=== PATIENT | female | born 1945 | race Caucasian/White ===

== ENCOUNTER 2017-12-19 13:37 | Outpatient (CLI) | payer MEDICARE, BC | END 2017-12-19 13:38 | disposition home or self-care (01) | LOC: BICRAD 13:37 | PROVIDERS: ATTEND Otolaryngology Plastic Surgery within the Head & Neck | DX: J45.901 Unspecified asthma with (acute) exacerbation (principal); R05 Cough | CPT/HCPCS: 71046 ==

== ENCOUNTER 2018-01-26 14:27 | Outpatient (CLI) | payer MEDICARE, BC ==
--- NOTE | 2018-01-26 16:07 | ULT ---
THYROID ULTRASOUND: History: Hypothyroidism. Comparison: None. FINDINGS: The thyroid echotexture is mildly coarsened. There is normal vascularity. Right lobe measures 5.7 x 1 .9 x 2.5 cm. Left lobe measures 4.1 x 2.1 x 1.7 cm. IMPRESSION: 1. Mild thyroidmegaly. No abnormal nodules. 2. Very mild increased vascularity can be seen with Grave's disease. POS: [facility]
== END 2018-01-26 14:28 | disposition home or self-care (01) ==
LOC: ULT 14:27
PROVIDERS: ATTEND Otolaryngology Plastic Surgery within the Head & Neck
DX: D49.7 Neoplasm of unspecified behavior of endocrine glands and other parts of nervous system (principal); E01.0 Iodine-deficiency related diffuse (endemic) goiter; E05.00 Thyrotoxicosis with diffuse goiter without thyrotoxic crisis or storm
CPT/HCPCS: 76536

== ENCOUNTER 2018-07-24 11:17 | Outpatient (CLI) | payer MEDICARE, BC ==
[2018-07-24 12:43] LABS: #Basophils 0.1 thou/uL (0.0-0.2); #Eosinphils 0.1 thou/uL (0.0-0.7); #Lymphocytes 2.3 thou/uL (1.20-3.40); #Monocytes 0.6 thou/uL (0.11-0.59); #Neutrophils 2.9 thou/uL (1.40-6.50); %Eosinophils 1.5 % (0.0-10.0); %Monocytes 10.5 % (0.0-10.0); Hemoglobin 14.3 g/dL (12.0-16.0); Mean Corpuscular HGB CONC 34.1 g/dL (32.0-36.0); Mean Corpuscular Hemoglobin 31.7 pg (27.0-31.0); Mean Corpuscular Volume 92.9 fL (78.0-98.0); Mean Platelet Volume 8.1 fL (7.4-10.4); Platelet Count 236 thou/uL (130-400); RBC Distribution Width 11.9 % (11.5-14.5); Red Blood Cell (RBC) Count 4.51 mill/uL (4.20-5.40)
[2018-07-24 13:02] LABS: Anion Gap 15 mmol/L (10-20); BUN (Urea Nitrogen) 10 mg/dL (9.8-20.1); Calc. Creatinine Clearance 0 mL/min (70-130); Calcium 9.3 mg/dL (7.8-10.44); Carbon Dioxide 20 mmol/L (23-31); Chloride 107 mmol/L (98-107); Estimated GFR-MDRD 70; Glucose 71 mg/dL (83-110); Potassium 4.2 mmol/L (3.5-5.1); Sodium 138 mmol/L (136-145)
--- NOTE | 2018-07-24 13:42 | RAD ---
PA AND LATERAL CHEST RADIOGRAPH: Date: 07-24-18 History: Pre-operative evaluation. Comparison: None available. FINDINGS: There is symmetric biapical pleural and parenchymal scarring. The lungs otherwise appear clear and/or expanded. Cardiac silhouette and pulmonary vasculature are within normal limits. There is osteopenia . IMPRESSION: 1. Mild chronic lung changes with pleural and parenchymal scarring at each lung apex. 2. No acute cardiopulmonary process. POS: [facility]
--- NOTE | 2018-07-24 16:05 | EKG ---
Test Reason : Blood Pressure : / mmHG Vent. Rate : 057 BPM Atrial Rate : 057 BPM P-R Int : 176 ms QRS Dur : 080 ms QT Int : 418 ms P-R-T Axes : 068 066 061 degrees QTc Int : 406 ms Sinus bradycardia Otherwise normal ECG Confirmed by AHMET ROSAS ([id number]) on 07/24/2018 4:04:32 PM Referred By: MYLES Confirmed By:AHMET ROSAS
== END 2018-07-24 11:18 | disposition home or self-care (01) ==
LOC: LABBT 11:17
PROVIDERS: ATTEND Specialist
DX: Z01.818 Encounter for other preprocedural examination (principal); C50.511 Malignant neoplasm of lower-outer quadrant of right female breast
CPT/HCPCS: 71046; 80048; 85025; 93005; 93010

== ENCOUNTER 2018-08-01 07:34 | Inpatient (IN) | payer MEDICARE, BC ==
[2018-08-01] MEDS ORDERED: Ketorolac Tromethamine 30 MG/ML VIAL ONE (09:01)
[2018-08-01] MEDS ORDERED: CEFAZOLIN/Water 2 GM/20 ML SYRINGE ONE (09:01)
--- NOTE | 2018-08-01 09:47 | NM ---
RIGHT BREAST LYMPHOSCINTIGRAPHY: INDICATION: Right breast cancer. RADIOPHARMACEUTICAL: 0.418 mCi Technetium 99m filtered SC subcutaneously. TECHNIQUE: Four separate aliquots were administered for a total of 0.418 mCi of Technetium 99m filtered SC withi n the 4 separate quadrants of the right nipple areolar complex. The site was massaged. The patient underwent planar imaging until initial lymph nodes within the anterior aspect of the right axilla wer e localized. This was marked on the patient's skin and the patient was then transferred to the preop erative holding area for the patient's right breast procedure. IMPRESSION: Successful right breast lymphoscintigraphy. POS: [facility]
[2018-08-01] MEDS ORDERED: Bupivacaine/Epinephrine 0.25% 30 ML VIAL ONE (09:56)
[2018-08-01] MEDS ORDERED: Fentanyl 250 MCG/5 ML VIAL ONE (10:18)
[2018-08-01] MEDS ORDERED: Isosulfan Blue 50 MG/5 ML VIAL ONE (11:03)
[2018-08-01] MEDS ORDERED: Dexamethasone 20 MG/5 ML VIAL ONE (13:45)
[2018-08-01] MEDS ORDERED: Ondansetron HCl/PF 4 MG/2 ML Vial ONE (13:45)
[2018-08-01] MEDS ORDERED: Glycopyrrolate 0.2 MG/ML 5 ML SYRINGE ONE (13:45)
[2018-08-01] MEDS ORDERED: ePHEDrine/0.9% NaCl/PF SYRINGE 50 mg/10 ml ONE (13:45)
[2018-08-01] MEDS ORDERED: PROPOFOL 200 MG/20 ML VIAL ONE (13:45)
[2018-08-01] MEDS ORDERED: PHENYLEPHRINE-NS 100 MCG/ML 10 ML SYRINGE ONE (13:45)
[2018-08-01] MEDS ORDERED: Fentanyl 100 MCG/2 ML VIAL ONE ×2 (14:24→15:18)
[2018-08-01] MEDS ORDERED: HYDROcodone/Acetaminophen 7.5/325 mg Tablet PO PRN ×2 (15:56)
[2018-08-01] MEDS ORDERED: Morphine 4 MG/ML VIAL SLOW IVP PRN (15:56)
[2018-08-01] MEDS ORDERED: Dextrose 5% in Water 1,000 ML IV PRN (15:56)
[2018-08-01] MEDS ORDERED: Acetaminophen 325 MG TAB PO PRN (15:56)
[2018-08-01] MEDS ORDERED: Ondansetron HCl/PF 4 MG/2 ML Vial IVP PRN (15:56)
[2018-08-01] MEDS ORDERED: Dextrose 50% Abboject 50 ML SYRINGE SLOW IVP PRN (15:56)
[2018-08-01] MEDS ORDERED: hydrALAZINE 20 MG/ML VIAL SLOW IVP PRN (15:56)
[2018-08-01] MEDS ORDERED: Promethazine HCl 25 MG/ML VIAL IM PRN (15:56)
[2018-08-01] MEDS: D5 1/2 NS w/20 mEq KCL 1,000 ML IV SCH (16:34)
[2018-08-01 16:58] VITALS: BMI 23.7
[2018-08-01] MEDS: Famotidine 20 MG TAB PO SCH (21:53)
[2018-08-02 04:59] LABS: #Basophils 0.1 thou/uL (0.0-0.2); #Lymphocytes 2.6 thou/uL (1.20-3.40); #Monocytes 1.2 thou/uL (0.11-0.59); #Neutrophils 9.4 thou/uL (1.40-6.50); %Basophils 0.4 % (0.0-1.0); %Eosinophils 0.1 % (0.0-10.0); %Lymphocytes 19.5 % (21.0-51.0); %Monocytes 8.7 % (0.0-10.0); %Neutrophils 71.2 % (42.0-75.0); Hemoglobin 10.8 g/dL (12.0-16.0); Mean Corpuscular HGB CONC 34.4 g/dL (32.0-36.0); Mean Corpuscular Hemoglobin 32.4 pg (27.0-31.0); Mean Corpuscular Volume 94.3 fL (78.0-98.0); Mean Platelet Volume 8.5 fL (7.4-10.4); Platelet Count 231 thou/uL (130-400); Red Blood Cell (RBC) Count 3.33 mill/uL (4.20-5.40); White Blood Cell (WBC) Count 13.2 thou/uL (4.8-10.8)
[2018-08-02] MEDS: D5 1/2 NS w/20 mEq KCL 1,000 ML IV SCH (07:19)
[2018-08-02 08:37] VITALS: BP 144/76; TEMP 98.3
[2018-08-02] MEDS: Famotidine 20 MG TAB PO SCH (10:06)
--- NOTE | 2018-08-03 14:37 | OP ---
DATE OF PROCEDURE: 08/01/2018 PREOPERATIVE DIAGNOSIS: Right breast cancer, BRCA positive (genetic susceptibility to breast cancer) . POSTOPERATIVE DIAGNOSIS: Right breast cancer, BRCA positive (genetic susceptibility to breast cancer ). PROCEDURE PREFORMED: Bilateral nipple-sparing mastectomy, right axillary sentinel lymph node biopsy. SURGEON: Bayron Khan M.D. ANESTHESIA: General endotracheal. INDICATIONS: The patient is a 73-year-old white female. She had a recent finding on mammogram that prompted a stereotactic biopsy of the right breast. This revealed a small focus of invasive ductal c arcinoma. When her family history was examined, genetic testing was ordered, which proved to be posi tive. I counseled her extensively regarding options in light of her diagnosis and her age. She has elected to proceed with bilateral nipple-sparing mastectomy with planned reconstruction. PROCEDURE IN DETAIL: Informed consent was obtained. Right breast lymphoscintigraphy was performed, which revealed sentinel lymph nodes within the right axilla. She was taken to the operating room whe re general endotracheal anesthesia was obtained with the patient in the supine position. Bilateral b reasts and axillae were prepped with ChloraPrep and draped in sterile fashion. Attention was turned first to the right axilla. 2.5 mL of Lymphazurin was infiltrated in the right p eriareolar subdermal tissue and massaged for 5 minutes. Local anesthetic was infiltrated and a trans verse right infra-axillary incision was created and dissection was carried through skin and subcutane ous tissue. The Neoprobe was utilized to identify areas of maximum radio intensity within the axilla . I was able to identify 2 separate lymph nodes with significant radioactivity. Each of these was d issected circumferentially and all investing lymphatics divided between clamps and 3-0 silk ties. Th e lymph nodes were passed off the field and submitted for touch prep. Pathologic evaluation was nega tive of both lymph nodes. There was no area of any further increased radioactive uptake within the a xilla nor was there any evidence of any further blue dye. The wound was irrigated and meticulous hem ostasis obtained. The wound was closed in layers with 3-0 and 4-0 Monocryl. Attention was turned next to the left breast. A curvilinear incision was created at the inferior asp ect of the left breast in the inframammary crease. The medial aspect of this incision was 8 cm in th e midline. A nipple-sparing mastectomy was performed in the usual fashion by elevating the breast ti ssue off the underlying pectoral fascia and then carefully dissecting the breast tissue from the skin flap attempting to maintain appropriate subcutaneous fat on the skin flap. Great care was taken in dissecting the nipple areolar complex as well. The mastectomy specimen was removed intact and tagged for orientation and submitted to pathology. Care was taken to avoid axillary dissection as well. The wound was thoroughly irrigated and meticulous hemostasis was obtained. A #19 round fluted drain was brought out laterally and inferiorly and secured with 3-0 nylon suture. The incision was closed with 3-0 and 4-0 Monocryl suture. Attention was turned to the right breast. A mirror image incision and operation was performed involv ing the right breast as on the left. The operation did not encounter the area of the prior sentinel lymph node biopsy within the axilla. The area of the sterotactic biopsy was visualized, but was with out evidence of apparent malignancy at the site that was seen. Again, hemostasis was obtained, drain was placed, the wound was closed. Dermabond was placed on all three incision sites. Fluffed gauze was placed over both mastectomy areas and an Isoband dressing wa s applied. Sterile occlusive dressings were applied over the drain's exit sites as well. There were no complications. Blood loss was minimal. The patient tolerated the procedure well and was taken t o recovery room in stable condition.
== END 2018-08-02 10:57 | disposition home or self-care (01) | DRG 581 ==
LOC: SDC 07:34 → T4-B 15:43
PROVIDERS: ADMIT Specialist; ATTEND Specialist
PROC: 0HTV0ZZ Resection of Bilateral Breast, Open Approach (ICD-10-PCS; principal; 2018-08-01)
PROC: 07B50ZX Excision of Right Axillary Lymphatic, Open Approach, Diagnostic (ICD-10-PCS; 2018-08-01)
DX: C50.511 Malignant neoplasm of lower-outer quadrant of right female breast (principal)
CPT/HCPCS: 36415; 78195; 85025; 88305; 88307; 88309; 88331; 88332; 88334; A9541; J0131; J1100; J1885; J2405; J2704; J3010; Q9968

== ENCOUNTER 2018-08-25 10:25 | Day surgery (SDC) | payer MEDICARE, BC ==
[2018-08-24 09:59] VITALS: BMI 22.6
[2018-08-25] MEDS ORDERED: Heparin 5,000 UNITS/ML VIAL ONE (10:57)
[2018-08-25] MEDS ORDERED: CEFAZOLIN/Water 2 GM/20 ML SYRINGE ONE (10:57)
[2018-08-25] MEDS ORDERED: Scopolamine 1.5 mg/72 hour Patch ONE (11:19)
[2018-08-25] MEDS ORDERED: Fentanyl 100 MCG/2 ML VIAL ONE ×2 (11:40→17:14)
[2018-08-25] MEDS ORDERED: Midazolam HCl 2 mg/2 ml Vial ONE (11:40)
[2018-08-25] MEDS ORDERED: HYDROcodone/Acetaminophen 10/325 mg Tablet PO PRN ×2 (12:45)
[2018-08-25] MEDS ORDERED: Zolpidem Tartrate 5 MG TAB PO PRN (12:45)
[2018-08-25] MEDS ORDERED: Ropivacaine 0.2% 550 ML 550 ML NERVE BLCK SCH ×2 (12:45→13:00)
[2018-08-25] MEDS ORDERED: traMADol HCl 50 MG TAB PO PRN ×2 (12:45)
[2018-08-25] MEDS ORDERED: Promethazine HCl 25 MG/ML VIAL IM PRN (12:45)
[2018-08-25] MEDS ORDERED: Ondansetron HCl/PF 4 MG/2 ML Vial IVP PRN (12:45)
[2018-08-25] MEDS ORDERED: Ketorolac Tromethamine 30 MG/ML VIAL IVP PRN (12:45)
[2018-08-25] MEDS ORDERED: Fentanyl 100 MCG/2 ML VIAL IV PRN (12:46)
[2018-08-25] MEDS ORDERED: Bupivacaine/Epinephrine 0.25% 30 ML VIAL ONE ×2 (13:00→13:08)
[2018-08-25] MEDS ORDERED: Gentamicin 80 MG/2 ML VIAL ONE ×3 (13:00→15:37)
[2018-08-25] MEDS ORDERED: Fentanyl 250 MCG/5 ML VIAL ONE (13:03)
[2018-08-25] MEDS ORDERED: Sodium Chloride 0.9% 10 ML ONE ×2 (13:06→13:54)
[2018-08-25] MEDS ORDERED: Ropivacaine 0.2% HCl/PF 20 ML ONE (14:05)
[2018-08-25] MEDS ORDERED: Ropivacaine 0.5% HCl/PF (150 MG/30 ML VIAL) ONE (14:50)
[2018-08-25] MEDS ORDERED: Ropivacaine 0.2% HCl/PF (40 MG/20 ML VIAL) ONE (14:50)
[2018-08-25] MEDS ORDERED: PHENYLEPHRINE-NS 100 MCG/ML 10 ML SYRINGE ONE (15:56)
[2018-08-25] MEDS ORDERED: Ondansetron HCl/PF 4 MG/2 ML Vial ONE (15:56)
[2018-08-25] MEDS ORDERED: PROPOFOL 200 MG/20 ML VIAL ONE (15:56)
[2018-08-25] MEDS ORDERED: Dexamethasone 20 MG/5 ML VIAL ONE (15:56)
[2018-08-25] MEDS ORDERED: Lidocaine 1% PF 5 ML VIAL ONE (15:56)
--- NOTE | 2018-08-25 22:40 | OP ---
DATE OF PROCEDURE: 08/25/2018 PREOPERATIVE DIAGNOSES: 1. Breast cancer. 2. Status post bilateral mastectomy. PROCEDURES: 1. Bilateral placement of tissue expanders for breast reconstruction (37600.50) . 2. Bilateral placement of Strattice dermal matrix for breast reconstruction ( 13405.50)(each side 16 x 20 cm). DESCRIPTION OF PROCEDURE: Following induction of adequate anesthesia, the patient was prepped and draped in the usual sterile fashion in the supine position. The existing inframammary crease scar was incised. Dissection was carried sharply down through the subcutaneous tissue to the underlying pectoralis fascia. Subsequently, adequate prepectoral pocket was made. The pocket was copiously irrigated and inspected for meticulous hemostasis prior to placement of the tissue skill labor with the Strattice secured to the tabs laterally and inferiorly to keep it draped over the anterior surface of the skill labor. The tissue skill labor was then secured at the inframammary crease with 3-0 PDS suture through the suture tabs as well as with the AlloDerm. The inframammary crease incision was closed with 3-0 PDS suture followed by 3-0 Monocryl suture. Additionally, prior to closure, dissolvable antibiotic beads containing vancomycin and gentamicin were placed in the pocket. The patient tolerated the procedure well. A similar procedure was done on each side. All iverson were copiously irrigated with triple antibiotic solution as well as dilute Betadine solution prior to closure and placement of the implants. Also, a skin barrier was used. [facility]ITAL[facility]ol[facility]
== END 2018-08-25 19:12 | disposition home or self-care (01) ==
LOC: SDC 10:25
PROVIDERS: ATTEND Plastic Surgery
PROC: 0HHV0NZ Insertion of Tissue Expander into Bilateral Breast, Open Approach (ICD-10-PCS; principal; 2018-08-25)
PROC: 0HUV0JZ Supplement Bilateral Breast with Synthetic Substitute, Open Approach (ICD-10-PCS; 2018-08-25)
DX: Z42.1 Encounter for breast reconstruction following mastectomy (principal); E78.00 Pure hypercholesterolemia, unspecified; Z85.3 Personal history of malignant neoplasm of breast; Z87.891 Personal history of nicotine dependence; Z79.899 Other long term (current) drug therapy; Z90.13 Acquired absence of bilateral breasts and nipples
CPT/HCPCS: 15777; 19357; 96374 ×2; A4306; C1713; A4216; J1100; J1580; J1644; J2001; J2250; J2405; J2704; J2795; J3010; J3370; J3490

== ENCOUNTER 2018-09-06 10:31 | Outpatient (CLI) | payer MEDICARE, BC ==
[2018-09-06 12:03] LABS: Anion Gap 12 mmol/L (10-20); BUN (Urea Nitrogen) 8 mg/dL (9.8-20.1); Calc. Creatinine Clearance 0 mL/min (70-130); Calcium 9.3 mg/dL (7.8-10.44); Carbon Dioxide 21 mmol/L (23-31); Chloride 103 mmol/L (98-107); Estimated GFR-MDRD 72; Glucose 82 mg/dL (83-110); Potassium 4.3 mmol/L (3.5-5.1); Sodium 132 mmol/L (136-145)
[2018-09-06 12:18] LABS: #Eosinphils 0.4 thou/uL (0.0-0.7); #Lymphocytes 2.1 thou/uL (1.20-3.40); #Monocytes 0.9 thou/uL (0.11-0.59); #Neutrophils 3.5 thou/uL (1.40-6.50); %Basophils 0.7 % (0.0-1.0); %Eosinophils 5.1 % (0.0-10.0); %Lymphocytes 30.7 % (21.0-51.0); %Monocytes 12.4 % (0.0-10.0); %Neutrophils 51.2 % (42.0-75.0); Hemoglobin 12.8 g/dL (12.0-16.0); Mean Corpuscular HGB CONC 32.8 g/dL (32.0-36.0); Mean Corpuscular Hemoglobin 30.8 pg (27.0-31.0); Mean Corpuscular Volume 93.9 fL (78.0-98.0); Platelet Count 343 thou/uL (130-400); RBC Distribution Width 11.7 % (11.5-14.5); Red Blood Cell (RBC) Count 4.17 mill/uL (4.20-5.40); White Blood Cell (WBC) Count 6.8 thou/uL (4.8-10.8)
== END 2018-09-06 10:32 | disposition home or self-care (01) ==
LOC: LABBT 10:31
PROVIDERS: ATTEND Specialist
DX: Z01.818 Encounter for other preprocedural examination (principal); C50.911 Malignant neoplasm of unspecified site of right female breast
CPT/HCPCS: 80048; 85025; 93005; 93010

== ENCOUNTER 2018-09-07 09:11 | Day surgery (SDC) | payer MEDICARE, BC ==
[2018-09-06 10:53] VITALS: BMI 22.5
[2018-09-07] MEDS ORDERED: Ketorolac Tromethamine 30 MG/ML VIAL ONE (10:10)
[2018-09-07] MEDS ORDERED: CEFAZOLIN/Water 2 GM/20 ML SYRINGE ONE (10:10)
[2018-09-07] MEDS ORDERED: Lidocaine 2% PF Inj 2 ML VIAL ONE (10:35)
[2018-09-07] MEDS ORDERED: Bupivacaine/Epinephrine 0.25% 30 ML VIAL ONE (10:35)
[2018-09-07] MEDS ORDERED: Fentanyl 100 MCG/2 ML VIAL ONE (11:39)
[2018-09-07] MEDS ORDERED: Propofol 500 MG/50 ML VIAL ONE (11:39)
--- NOTE | 2018-09-07 13:51 | RAD ---
CHEST ONE VIEW: FINDINGS: C-arm view of the chest was obtained and shows a left sided Mediport catheter present. The catheter t ip overlies the superior vena cava. IMPRESSION: Mediport catheter replacement. POS: [facility]
--- NOTE | 2018-09-07 14:05 | RAD ---
PORTABLE CHEST: HISTORY: Status post MediPort catheter placement. FINDINGS: Heart size within normal limits. The A left-sided MediPort catheter is present. Catheter tip overli es the superior vena cava. No signs of pneumothorax. Bilateral breast augmentation is noted. IMPRESSION: Left-sided MediPort catheter. Catheter tip overlies the superior vena cava. No signs of pneumothora x. POS: [facility]
--- NOTE | 2018-09-08 08:20 | OP ---
DATE OF PROCEDURE: 09/07/2018 PREOPERATIVE DIAGNOSIS: Right breast cancer. POSTOPERATIVE DIAGNOSIS: Right breast cancer. OPERATION PERFORMED: Left subclavian low profile power compatible MediPort placement. SURGEON: Bayron Khan M.D. ANESTHESIA: Total intravenous anesthesia with local using 0.25% Marcaine with epinephrine. INDICATIONS: The patient is a 73-year-old white female. She was diagnosed with right breast cancer and was found to be BRCA positive. She subsequently underwent bilateral nipple-sparing mastectomy an d has undergone the initial stage of reconstruction with placement of tissue commission associate. Her Oncotype results suggested a high risk of recurrence, and therefore, chemotherapy has been recommended. She p resents at this time for MediPort placement for this purpose. DESCRIPTION OF OPERATION: Informed consent was obtained. The patient was taken to the operating sarbjit m where total intravenous anesthesia was obtained with the patient in supine position. Right pericla vicular area was prepped with ChloraPrep and draped in sterile fashion. Local anesthetic was infiltr ated and a large gauge needle was passed under the clavicle in the subclavian vein. Guidewire was pa ssed through the needle and fluoroscopically confirmed to enter the superior vena cava. Additional l ocal anesthetic was infiltrated and transverse incision was created based on needle insertion site. A subcutaneous pocket was dissected inferiorly. Introducer dilator was passed over the guidewire und er fluoroscopic guidance. The guidewire and dilator were removed, and the catheter was passed throug h the introducer. The tip of the catheter was positioned at the atriocaval junction and the catheter was trimmed to the appropriate length and secured to the locking hub of the MediPort. The port was then placed in the subcutaneous pocket where it was secured to the pectoral fascia with 2 interrupted sutures of 3-0 Prolene. The incision was then closed in layers with 3-0 and 4-0 Monocryl. Addition al local anesthetic was infiltrated. The port was cannulated with a Calhoun needle and it aspirated bl ood freely and was flushed with heparinized saline. Dermabond was placed externally on the skin inci natasha. There were no complications. Blood loss was negligible. The patient tolerated the procedure well and was taken to recovery room in stable condition. FINDINGS: The port placed was a low profile port. It was placed uneventfully into the left subclavi an vein. Her anatomy was typical. There were essentially no blood loss and no complications. She t olerated the procedure well and was taken to recovery room in stable condition.
== END 2018-09-07 13:30 | disposition home or self-care (01) ==
LOC: SDC 09:11
PROVIDERS: ATTEND Specialist
PROC: 0JH63WZ Insertion of Totally Implantable Vascular Access Device into Chest Subcutaneous Tissue and Fascia, Percutaneous Approach (ICD-10-PCS; principal; 2018-09-07)
DX: C50.911 Malignant neoplasm of unspecified site of right female breast (principal); Z79.811 Long term (current) use of aromatase inhibitors; Z79.899 Other long term (current) drug therapy; Z90.13 Acquired absence of bilateral breasts and nipples
CPT/HCPCS: 36561; 71045; C1788; J0131; J1642; J1885; J2704; J3010

== ENCOUNTER 2019-01-31 15:17 | Outpatient (CLI) | payer MEDICARE, BC ==
--- NOTE | 2019-01-31 16:52 | RAD ---
PA AND LATERAL CHEST: HISTORY: Cough. COMPARISON: 07/24/2018 FINDINGS: There has been placement of a left-sided Port-A-Cath with the tip in the projection of the SVC. Bila teral breast implants are present. The heart size is normal. The lungs are well expanded without lo bar consolidation, pneumothoraces, or pleural effusions. No acute osseous abnormalities are seen. IMPRESSION: No radiographic evidence of acute cardiopulmonary process. POS: [facility]
== END 2019-01-31 15:18 | disposition home or self-care (01) ==
LOC: BICRAD 15:17
PROVIDERS: ATTEND Family Medicine
DX: R05 Cough (principal)
CPT/HCPCS: 71046

== ENCOUNTER 2019-02-26 06:03 | Day surgery (SDC) | payer MEDICARE, BC ==
[2019-02-23 12:56] VITALS: BMI 22.9
[2019-02-26] MEDS ORDERED: Fentanyl 100 MCG/2 ML VIAL ONE ×2 (06:13→11:26)
[2019-02-26] MEDS ORDERED: Lidocaine 2% Jelly 5 ML TUBE ONE (06:14)
[2019-02-26] MEDS ORDERED: Heparin 5,000 UNITS/ML VIAL ONE (06:21)
[2019-02-26] MEDS ORDERED: Sodium Chloride 0.9% 20 ML ONE ×2 (06:46→09:04)
[2019-02-26] MEDS ORDERED: Gentamicin 80 MG/2 ML VIAL ONE ×2 (06:46→09:04)
[2019-02-26] MEDS ORDERED: Bupivacaine/Epinephrine 0.25% 30 ML VIAL ONE (06:46)
[2019-02-26] MEDS ORDERED: Dexamethasone 20 MG/5 ML VIAL ONE (06:50)
[2019-02-26] MEDS ORDERED: Midazolam HCl 2 mg/2 ml Vial ONE (07:20)
[2019-02-26] MEDS ORDERED: EPINEPHrine 1 MG/ML AMP ONE (07:44)
--- NOTE | 2019-02-26 12:28 | OP ---
DATE OF PROCEDURE: 02/26/2019 PREOPERATIVE DIAGNOSES: 1. Breast cancer. 2. Status post bilateral mastectomy. 3. Status post bilateral tissue soldering machine operator placement. PROCEDURES PERFORMED: 1. Bilateral replacement of tissue expanders with implants with significant capsular work (92754.50). 2. Left internal Jese flap (3 x 15 cm), (12218.LT). 3. Bilateral fat grafting, 11639.50. DESCRIPTION OF PROCEDURE: Following the induction of adequate anesthesia, the patient was prepped and draped in usual sterile fashion in the supine position. Attention was first turned to the right inframammary crease scar, which was incised. Dissection was carried sharply down through the subcutaneous tissue to identify the capsule. The capsule was incised of the tissue soldering machine operator. Underlying tissue soldering machine operator being deflated and removed. The soldering machine operator was positioned well in the vertical superior to inferior aspect, but slightly lateralized. A capsulotomy was made from 2 o'clock to 12 o'clock to 9 o'clock down to approximately 7 o'clock. This allowed for superior expansion. Additional capsulotomies were made on the entire medial aspect to allow for some medial expansion. A crescent lateral capsule was then excised. Capsular flaps were raised medially and laterally. These were then sewn in a [id number] fashion to medialize the pocket. It was secured in layers using 2-0 PDS suture followed by 2-0 Prolene suture. A Sizer was used to determine what implant would give an appropriate fit with the pocket work. A 490 mL Neponset smooth round implant was chosen. See above for details. The pocket was copiously irrigated and inspected for meticulous hemostasis prior to placement of the implant after donning fresh gloves. A skin barrier was also placed. The pocket was then closed with 0 PDS suture and 3-0 Monocryl suture. Attention was turned to the left side. A similar procedure was done for the capsulotomies medially and superiorly. Laterally, the capsule was incised with flaps being raised medially and laterally and then closed over [id number]. Due to the thinness of the patient, no capsule was excised. The capsular flap closure was done in a similar fashion as described. Inferiorly, the tissue soldering machine operator needed to be elevated with recreation of the inframammary crease. This was done by incising the capsule and raising the capsular flap superiorly. A section of tissue was de-epithelialized and then buried to the bottom of the capsular flap in a [id number] fashion for the internal Jese flap. This was secured in place with interrupted and running layers of 2-0 PDS suture. The pocket was then inspected again prior to placement of a similar 490 mL implant. Attention was turned to the fat grafting. The abdomen was infiltrated with tumescent fluid. After this had adequate time to take effect, traditional liposuction was done with harvesting of the fat. The fat was allowed to separate by gravity. The fluid was then decanted. The fat was injected through 11 blade stab incisions around the medial peripheral chest. Approximately 50 mL of fat was injected per side on the inferior, medial, and superior aspects of the breast. This was done in a micro droplet technique. All stab incisions were closed with 5-0 fast gut suture. The patient tolerated the procedure well. Job ID: [id number]
--- NOTE | 2019-02-27 21:02 | EKG ---
Test Reason : PREOP Blood Pressure : / mmHG Vent. Rate : 060 BPM Atrial Rate : 060 BPM P-R Int : 174 ms QRS Dur : 082 ms QT Int : 406 ms P-R-T Axes : 074 062 061 degrees QTc Int : 406 ms Normal sinus rhythm with sinus arrhythmia Normal ECG Confirmed by NEYMAR BERNARD, DR. Carter ([id number]) on 02/27/2019 9:01:35 PM Referred By: [facility] Confirmed By:DR. Raul BLACKMON MD
== END 2019-02-26 13:05 | disposition home or self-care (01) ==
LOC: SDC 06:03
PROVIDERS: ATTEND Plastic Surgery
PROC: 0HWU0JZ Revision of Synthetic Substitute in Left Breast, Open Approach (ICD-10-PCS; principal; 2019-02-26)
PROC: 0HWT0JZ Revision of Synthetic Substitute in Right Breast, Open Approach (ICD-10-PCS; 2019-02-26)
DX: C50.919 Malignant neoplasm of unspecified site of unspecified female breast (principal); Z87.891 Personal history of nicotine dependence; Z79.811 Long term (current) use of aromatase inhibitors; Z79.899 Other long term (current) drug therapy; Z90.13 Acquired absence of bilateral breasts and nipples
CPT/HCPCS: 93005; 93010; J0171; J1100; J1580; J1644; J2250; J3010; J3370; J3490